=== PATIENT | female | born 1960 | race Caucasian/White ===

== ENCOUNTER 2018-11-14 02:30 | Emergency (ER) | payer OTHER ==
[~2018-11-14] VITALS: Ht 162.6 cm; Wt 83.9 kg
[~2018-11-14 02:30] MED LIST: ALPRAZOLAM2 MG; AMBIEN 10 MG TA10 MG; ATENOLOL 25 MG25 M1; OXYCODONE HCL20 M1; PERCOCET 5-3251 EACH PO
[2018-11-14 04:30] VITALS: BP 129/77
== END 2018-11-14 05:05 | disposition home or self-care (01) ==
LOC: ER 02:30
DX: F16.90 Hallucinogen use, unspecified, uncomplicated (principal)

== ENCOUNTER 2020-06-11 11:45 | Emergency (ER) | payer OTHER ==
[~2020-06-11] VITALS: Ht 157.5 cm; Wt 61.9 kg
[2020-06-11] MEDS ORDERED: OXYCODONE HCL E80 MG PO (12:00)
[2020-06-11] MEDS ORDERED: NARCAN4 MG NARES (12:25)
[2020-06-11 16:00] VITALS: BP 162/84
--- NOTE | 2020-06-14 08:25 | EKG ---
[facility] [place] [address] ELECTROCARDIOGRAM REPORT Name: CON HASTINGS Room #: DEP [facility]#: [id number] Admission: 06/11/20 Attend Phys: Discharge: 06/11/20 Date of : 60 Report #: [id number] THIS REPORT FOR: cc: MARIFER - Megan family physician/PCP MARIFER - Megan family physician/PCP Robinson Barrera MD [facility] THIS REPORT FOR: //name// [facility] ED Test Date: 2020-06-11 Test Time: 11:52:00 Pat Name: CON HASTINGS Department: Room: Gender: F [employer] Grader: BANNER : 1960 Requested By: Fredrick Wray Order Number: [id number] MD: Robinson Barrera Measurements Intervals Cook Rate: 95 P: 65 DC: 168 QRS: 47 QRSD: 97 T: 52 QT: 386 QTc: 486 Interpretive Statements Sinus rhythm Borderline prolonged QT interval No previous ECG available for comparison Electronically Signed On 06-14-2020 8:25:09 CDT by Robinson Barrera [email or web address] <ELECTRONICALLY SIGNED> By: Robinson Barrera MD, [facility] 06/14/20 0825 1152 1152 Robinson Barrera MD, [facility] /EPI
== END 2020-06-11 16:02 | disposition left against medical advice (07) ==
LOC: ER 11:45
DX: T40.1X1A Poisoning by heroin, accidental (unintentional), initial encounter (principal); M48.00 Spinal stenosis, site unspecified; Z79.899 Other long term (current) drug therapy; Y92.89 Other specified places as the place of occurrence of the external cause